=== PATIENT | female | born 2000 | race Two or more races ===

== ENCOUNTER 2024-03-19 09:56 | Inpatient (IN) ==
[2024-03-19] MEDS ORDERED: Prochlorperazine 5 mg/ml 2 ml VIAL (10 mg) IV PRN (10:28)
[2024-03-19] MEDS ORDERED: Lidocaine 1% VIAL 10 MG/ML 30 ML VIAL INJ PRN (10:28)
[2024-03-19] MEDS: miSOPROStol 100 mcg TAB PO ONE ×2 (11:10→15:10)
[2024-03-19 12:26] LABS: Urine Benzodiazepine Screen None Detected (None Detect); Urine Cannabinoids Screen None Detected (None Detect); Urine Opiates Screen None Detected (None Detect)
[2024-03-19 12:34] LABS: ABS Eosinophils 0.1 10^3/uL (0.0-0.5); ABS Lymphocytes 2.3 10^3/uL (1.0-4.8); ABS Monocytes 0.3 10^3/uL (0.0-0.9); ABS Neutrophils 5.8 10^3/uL (1.5-7.6); Eosinophil % 1.1 %; Hematocrit 31.8 % (35-45); Hemoglobin 10.6 g/dL (11.5-14.3); Mean Corpuscular Hemoglobin 28.1 pg (27-33); Mean Corpuscular Hgb Conc 33.2 g/dL (31-36); Mean Corpuscular Volume 84.7 fL (80-97); Platelet Count 278 10^3/uL (150-450); Red Blood Count 3.75 10^6/uL (3.63-4.92); Red Cell Distribution Width 14.9 % (12-17); White Blood Count 8.7 10^3/uL (3.8-11.8)
[2024-03-19] MEDS: Lactated Ringers 1000 ml BAG 1,000 ML IV ONE (14:45)
[2024-03-19] MEDS: Dinoprostone 10 MG VAG.SUPP VAGINAL ONE (20:34)
[2024-03-20] MEDS: Lactated Ringers 1000 ml BAG 1,000 ML IV ONE (11:17)
[2024-03-20] MEDS: Lidocaine 1% w EPI 1:200,000 SDV 30 ML VIAL ONE (11:30)
[2024-03-20] MEDS: Lactated Ringers 1000 ml BAG 1,000 ML IV SCH (11:45)
[2024-03-20] MEDS: OBEPIDURAL (200 ML) 200 ML EPIDURAL ONE ×2 (11:46→20:15)
[2024-03-20] MEDS ORDERED: Sodium Citrate/Citric Acid LIQ 15 ML UDC PO PRN (12:01)
[2024-03-20] MEDS ORDERED: Phenylephrine 40 mcg/mL 10mL (400mcg) SYRINGE IV PUSH PRN ×2 (12:01)
[2024-03-20 12:40] LABS: Urine Appearance Clear; Urine Bilirubin Negative (Negative); Urine Blood Negative (Negative); Urine Color Light-Yellow; Urine Glucose Negative (Negative); Urine Ketones Negative (Negative); Urine Nitrite Negative (Negative); Urine Protein Negative (Negative); Urine Urobilinogen Negative (Negative); Urine pH 6.5 (5.0-8.0)
[2024-03-20] MEDS ORDERED: OBEPIDURAL (200 ML) 200 ML EPIDURAL SCH (13:00)
[2024-03-20] MEDS: Oxytocin in LR 20,000 MILLI.UNIT/1,000 ML BAG IV SCH (14:10)
[2024-03-20] MEDS: fentaNYL 100 mcg/2 ml 50 MCG/ML VIAL ONE (20:18)
[2024-03-21] MEDS ORDERED: Glycerin ADULT 2.4 gm SUPP PR PRN (00:57)
[2024-03-21] MEDS ORDERED: Lactated Ringers 1000 ml BAG 1,000 ML IV SCH (01:00)
[2024-03-21] MEDS: Witch Hazel PAD JAR TOPICAL PRN (02:09)
[2024-03-21] MEDS: Dibucaine 1% OINT 28.35 GM TUBE PR PRN (02:09)
[2024-03-21] MEDS: Measles, Mumps,Rubella VACC 0.5 ML/VIAL SUBCUT ONE (14:46)
[2024-03-21] MEDS: Varicella Virus Vaccine Live 0.5 ML VIAL SUBCUT ONE (16:29)
[2024-03-22 07:12] LABS: ABS Eosinophils 0.1 10^3/uL (0.0-0.5); ABS Monocytes 0.3 10^3/uL (0.0-0.9); ABS Neutrophils 6.8 10^3/uL (1.5-7.6); Eosinophil % 0.8 %; Hematocrit 25.1 % (35-45); Hemoglobin 8.4 g/dL (11.5-14.3); Lymphocyte % 29.5 %; Mean Corpuscular Hemoglobin 28.6 pg (27-33); Mean Corpuscular Hgb Conc 33.3 g/dL (31-36); Mean Corpuscular Volume 85.8 fL (80-97); Mean Platelet Volume 7.4 fL (7.5-11.2); Platelet Count 229 10^3/uL (150-450); Red Blood Count 2.93 10^6/uL (3.63-4.92); White Blood Count 10.2 10^3/uL (3.8-11.8)
[2024-03-22] MEDS: Lidocaine 1% VIAL 10 MG/ML 30 ML VIAL ONE (07:19)
[2024-03-22] MEDS: Oxytocin in LR 20,000 MILLI.UNIT/1,000 ML BAG IV SCH (07:19)
[2024-03-22] MEDS: Lactated Ringers 1000 ml BAG 1,000 ML IV ONE (07:20)
[2024-03-22] MEDS: Phenylephrine 40 mcg/mL 10mL (400mcg) SYRINGE ONE (07:20)
[2024-03-22] MEDS: Lactated Ringers 1000 ml BAG 1,000 ML IV SCH (07:21)
[2024-03-22] MEDS: Buffered Lidocaine 1% SYRIN 1 ml INTRADERM ONE (07:21)
[2024-03-23 08:49] VITALS: BP 126/74
== END 2024-03-23 14:08 | disposition home or self-care (01) | DRG 560 ==
LOC: MCHOBOUT 09:56 → MCHOB 10:23
PROVIDERS: ADMIT Advanced Practice Midwife; ATTEND Midwife